=== PATIENT | female | born 1975 | race Caucasian/White ===

== ENCOUNTER 2021-11-25 13:56 | Emergency (ER) | payer OTHER ==
[2021-11-25 14:05] VITALS: BP 113/77; PULSE 81; TEMP 97.9; BMI 27.4
[2021-11-25] MEDS ORDERED: traMADol HCL 50 MG TABLET PO ONE (14:30)
[2021-11-25] MEDS ORDERED: KETOROLAC TROMETHAMINE 30 MG/1 ML VIAL IM ONE (14:31)
[2021-11-25] MEDS ORDERED: KETOROLAC TROMETHAMINE 30 MG/1 ML VIAL ONE (14:53)
[2021-11-25] MEDS ORDERED: traMADol HCL 50 MG TABLET ONE (14:53)
== END 2021-11-25 15:26 | disposition home or self-care (01) ==
LOC: JERFT 13:56
PROC: 3E0233Z Introduction of Anti-inflammatory into Muscle, Percutaneous Approach (ICD-10-PCS; principal; 2021-11-25)
DX: K08.89 Other specified disorders of teeth and supporting structures (principal)
CPT/HCPCS: 99284-25

== ENCOUNTER 2022-08-20 12:42 | Emergency (ER) | payer OTHER ==
[2022-08-20 13:17] VITALS: BP 127/77; PULSE 84; RESP 17; TEMP 98.6; BMI 28.3
[2022-08-20] MEDS ORDERED: predniSONE 20 MG TABLET (UD) PO ONE (15:29)
[2022-08-20] MEDS: ALBUTEROL SO4 2.5/IPRATROPIUM 0.5 INH SOL 3 ML VIAL.NEB. NEB SCH ×4 (15:30→16:15)
[2022-08-20] MEDS ORDERED: ALBUTEROL SO4 2.5/IPRATROPIUM 0.5 INH SOL 3 ML VIAL.NEB. NEB ONE (15:31)
[2022-08-20] MEDS ORDERED: predniSONE 20 MG TABLET (UD) ONE (15:31)
== END 2022-08-20 17:05 | disposition home or self-care (01) ==
LOC: JER 12:42
PROC: 3E0F7GC Introduction of Other Therapeutic Substance into Respiratory Tract, Via Natural or Artificial Opening (ICD-10-PCS; principal; 2022-08-20)
DX: J45.21 Mild intermittent asthma with (acute) exacerbation (principal)
CPT/HCPCS: 0241U-QW; 71046-TC-FY; 99284-25

== ENCOUNTER 2023-10-01 04:02 | Emergency (ER) | payer OTHER ==
[2023-10-01 04:11] VITALS: BP 142/93; PULSE 86; RESP 18; TEMP 98.4; BMI 28.5
== END 2023-10-01 05:31 | disposition home or self-care (01) ==
LOC: JER 04:02
PROC: 0H96XZZ Drainage of Back Skin, External Approach (ICD-10-PCS; principal; 2023-10-01)
DX: L72.3 Sebaceous cyst (principal)
CPT/HCPCS: 10060; 99283-25